=== PATIENT | male | born 1960 | race African-American/Black ===

== ENCOUNTER 2020-03-15 08:28 | Emergency (ER) | payer MEDICARE ==
[~2020-03-15] VITALS: Ht 185.4 cm; Wt 104.2 kg
[2020-03-15 08:37] VITALS: BP 97/57
[2020-03-15] MEDS ORDERED: DIPH,PERTUSS(ACELL),TET VAC/PF 0.5 ML IM-VACC ONE ×2 (09:00→09:13)
== END 2020-03-15 09:55 | disposition home or self-care (01) ==
LOC: ED 09:17
DX: L03.115 Cellulitis of right lower limb (principal); L03.116 Cellulitis of left lower limb
CPT/HCPCS: 90471; 90715; 99283